=== PATIENT | female | born 1975 | race Caucasian/White ===

== ENCOUNTER 2019-11-10 20:55 | Emergency (ER) | payer OTHER ==
[~2019-11-10] VITALS: Ht 162.6 cm; Wt 60.2 kg
[2019-11-10 20:55] VITALS: BP 127/70
[~2019-11-10 20:55] MED LIST: DIPH25CA58 PO; DOMPERIDONE; PRENATAL ONE T1 EACH PO; SULF5DRO OD
--- NOTE | 2019-11-10 21:28 | PHYS DOC ---
Past History Past Medical History: Other Additional Past Medical Histor: ADHD Past Surgical History: No Surgical History Smoking: Non-smoker Alcohol Use: None Drug Use: None General Adult EDM: Chief Complaint: INSECT BITE HPI: HPI: "...We moved into the area again .. about 3 weeks ago.. we were checking out... With several health rebound.. And I got multiple insect bites... So did my kids... They got better... I did not Patient is a 44 year old female who presents with multiple insect bites which appear to be chiggers-areas appear to be excoriated. Pt. now appears to be developing some cellulitis. Patient does not remember her last tetanus vaccinations. Recently moved to the area from [place]. Currently will be following at [facility] and or Dr. Colby's office. Patient has no central adenopathy. Does have some striation and surrounding inflammation and insect bites. No history immunosuppression. Recently moved back into [facility] from [place]. Review of Systems: Review of Systems: Constitutional: Denies fever or chills Eyes: Denies change in visual acuity HENT: Denies nasal congestion or sore throat Respiratory: Denies cough or shortness of breath Cardiovascular: Denies chest pain or edema GI: Denies abdominal pain, nausea, vomiting, bloody stools or diarrhea : Denies dysuria Musculoskeletal: Denies back pain or joint pain Integument: Complains of insect bites and cellulitis Neurologic: Denies headache, focal weakness or sensory changes Endocrine: Denies polyuria or polydipsia Lymphatic: Denies swollen glands Psychiatric: Denies depression or anxiety Heart Score: Risk Factors: Risk Factors: DM, Current or recent (<one month) smoker, HTN, HLP, family history of CAD, obesity. Risk Scores: Score 0 - 3: 2.5% MACE over next 6 weeks - Discharge Home Score 4 - 6: 20.3% MACE over next 6 weeks - Admit for Clinical Observation Score 7 - 10: 72.7% MACE over next 6 weeks - Early Invasive Strategies Family History: Family History: All her children have insect bites but they recovered Current Medications: Current Meds: See nursing for home meds Allergies: Allergies: Allergies Coded Allergies Type Severity Reaction Last Updated Verified No Known Drug Allergies 11/10/19 No Physical Exam: PE: Constitutional: Well developed, well nourished, moderate acute distress, non- toxic appearance. [] HENT: Normocephalic, atraumatic, bilateral external ears normal, oropharynx moist, no oral exudates, nose normal. [] Eyes: PERRLA, EOMI, conjunctiva normal, no discharge. [] Neck: Normal range of motion, no tenderness, supple, no stridor. [] Cardiovascular:Heart rate regular rhythm, no murmur [] Lungs & Thorax: Bilateral breath sounds clear to auscultation [] Abdomen: Bowel sounds normal, soft, no tenderness, no masses, no pulsatile masses. [] Skin: Warm, dry, multiple bites which appear to be chigger bites in distribution and location. Does have localized inflammation and cellulitis from excoriation Back: No tenderness, no CVA tenderness. [] Extremities: No tenderness, no cyanosis, no clubbing, ROM intact, no edema. [] Neurologic: Alert and oriented X 3, normal motor function, normal sensory function, no focal deficits noted. [] Psychologic: Affect anxious, judgement normal, mood normal. [] Current Patient Data: Vital Signs: Vital Signs Date Time Temp Pulse Resp B/P (MAP) Pulse Ox O2 Delivery O2 Flow Rate FiO2 11/10/19 20:55 98.2 58 16 127/70 (89) 99 Room Air EKG: EKG: [] Radiology/Procedures: Radiology/Procedures: [] Course & Med Decision Making: Course & Med Decision Making Pertinent Labs and Imaging studies reviewed. (See chart for details) Patient use salt water compresses or Epson salt water compresses 4 times a day. Afterwards rub areas with Polysporin 4 times a day. Patient take Bactrim DS twice a day for the next 10 days. Patient warned can make her sun sensitive. Patient take [id number] Tylenol and ibuprofen for discomfort. For marked discomfort from itching may take Benadryl 25 to 50 mg up to 4 times a day. Patient avoid further scratching of the insect bites. Patient follow-up primary care. Patient return if any concerns. Impression: 1. Chigger bites 2. Localized cellulitis and excoriations [] Dragon Disclaimer: Dragon Disclaimer: This electronic medical record was generated, in whole or in part, using a voice recognition dictation system. Departure Departure: Disposition: 01 HOME/RESIDENCE PRIOR TO ADM Condition: STABLE Referrals: MOHIT COLBY MD (PCP) Scripts Sulfamethoxazole/Trimethoprim (BACTRIM DS TABLET) 1 Each Tablet 1 TAB PO BID for cellulitis for 10 Days, #20 TAB 0 Refills Prov: GARY RICHARDS MD 11/10/19 Justification of Admission: Justification of Admission: Justification of Admission Dx: N/A Dragon Disclaimer This chart was dictated in whole or in part using Voice Recognition software in a busy, high-work load, and often noisy Emergency Department environment. It may contain unintended and wholly unrecognized errors or omissions. Dragon Disclaimer This chart was dictated in whole or in part using Voice Recognition software in a busy, high-work load, and often noisy Emergency Department environment. It may contain unintended and wholly unrecognized errors or omissions. GARY RICHARDS MD Nov 10, 2019 21:28
[2019-11-10] MEDS ORDERED: SULF1TAB24 PO (21:33)
[2019-11-10] MEDS ORDERED: SMZ/TMP 800/160MG TABLET. PO ONE (22:00)
[2019-11-10] MEDS ORDERED: DIPH,PERTUSS(ACELL),TET VAC/PF 0.5 ML SYRINGE. VAX IM ONE (22:30)
== END 2019-11-10 22:44 | disposition home or self-care (01) ==
LOC: ER 20:55
DX: S80.861A Insect bite (nonvenomous), right lower leg, initial encounter (principal); S70.262A Insect bite (nonvenomous), left hip, initial encounter; S00.462A Insect bite (nonvenomous) of left ear, initial encounter; S30.860A Insect bite (nonvenomous) of lower back and pelvis, initial encounter; L03.90 Cellulitis, unspecified; W57.XXXA Bitten or stung by nonvenomous insect and other nonvenomous arthropods, initial encounter; Y93.89 Activity, other specified; Y92.89 Other specified places as the place of occurrence of the external cause; Y99.8 Other external cause status
CPT/HCPCS: 90471; 90715; 99283-25

== ENCOUNTER 2019-11-27 10:36 | Emergency (ER) | payer OTHER ==
[~2019-11-27] VITALS: Ht 162.6 cm; Wt 61.2 kg
[~2019-11-27 10:36] MED LIST changes: +SULF1TAB24 PO
[2019-11-27 10:50] VITALS: BP 106/60
--- NOTE | 2019-11-27 11:27 | PHYS DOC ---
Past History Past Medical History: Other Additional Past Medical Histor: ADHD Past Surgical History: , Other Additional Past Surgical Histo: CERVICLE SPINE, R-WRIST, L-KNEE, BILAT CARPAL TUNNEL Smoking: Non-smoker Alcohol Use: None Drug Use: None Adult General Chief Complaint Chief Complaint: SKIN PROBLEM HPI HPI Patient is a 44-year-old female who presents for skin problems. Reported onset of the skin problems approximately 2 weeks ago for which she visited our ER for evaluation and was subsequently prescribed Bactrim. Patient had allergic reaction to said medication and this was discontinued. Patient thought she was resolving; however, it did not fully resolve and worsened spreading to various portions of her body mostly on her extremities. Patient was seen by her PCP 3 days ago and given and antibiotic injection (I assume Rocephin) and subsequently prescribed Keflex. She has been taking this as scheduled without compliance issues. She is concerned that her skin issues are not resolving and here for ev aluation. She denies any fever, syncope, chest pain, shortness of breath, abdominal pain, URI-like symptoms and/or COVID symptoms. She has no history of MRSA infection, no recent travel to concerning places. She reports relocating approximately 1 month ago from [place], admits being outdoors a lot wearing shorts and short sleeves, reports exploring in [place] with her [place] but denies any known tick exposure. She does admit to several insect bites Review of Systems Review of Systems Fourteen body systems of review of systems have been reviewed. See HPI for pertinent positives and negative responses, other francis all other systems are negative, non-pertinent or non-contributory Allergies Allergies Allergies Coded Allergies Type Severity Reaction Last Updated Verified sulfamethoxazole Allergy Unknown 11/27/19 Yes trimethoprim Allergy Unknown 11/27/19 Yes Physical Exam Physical Exam Constitutional: Well developed, well nourished, no acute distress, non-toxic appearance. HENT: Normocephalic, atraumatic, bilateral external ears normal, oropharynx moist, no oral exudates, nose normal. Eyes: PERRLA, EOMI, conjunctiva normal, no discharge. Neck: Normal range of motion, no tenderness, supple, no stridor. Cardiovascular: Heart rate regular, sinus rhythm, no murmurs rubs or gallops Lungs & Thorax: Bilateral breath sounds clear to auscultation Abdomen: Bowel sounds normal, soft, no tenderness, no masses, no pulsatile masses. Nonsurgical abdomen, no peritoneal signs Skin: Warm, dry, no erythema, no rash. Numerous sites of excoriation and skin breakdown on all extremities with largest lesion on posterior left scalp Bila, this was dressed by PCP 3 days ago. Appears well appearing, epidermal with mild dermal breakdown and moist without any palpable exudate or crepitus, minimal erythema surrounding borders which are not raised all consistent with simple staph infection of skin Back: No tenderness, no CVA tenderness. Extremities: No tenderness, no cyanosis, no clubbing, ROM intact, no edema. Neurologic: Alert and oriented X 3, grossly normal motor & sensory function, no focal deficits noted. Psychologic: Affect normal, judgement normal, anxious mood Current Patient Data Vital Signs Vital Signs Date Time Temp Pulse Resp B/P (MAP) Pulse Ox O2 Delivery O2 Flow Rate FiO2 11/27/19 10:50 98.7 48 20 106/60 (75) 100 Room Air EKG EKG [] Radiology/Procedures Radiology/Procedures [] Course & Med Decision Making Course & Med Decision Making Well-appearing ambulatory patient seen on arrival ABCs non-concerning Comprehensive history and physical exam performed At present, no emergent and/or surgical findings. I discussed she likely has skin infection without risk factors for MRSA, no known tick bite etc. She is on appropriate therapy with Keflex I reassured patient to continue previously prescribed p.o. medications. I did recommend close PCP follow-up in outpatient setting near completion of said antibiotics. If no resolution occurs, would consider escalating antibiotic therapy to covering MRSA and/or other tickborne or insects Strict return precautions were discussed with good understanding by patient, all questions and concerns addressed prior to ER departure in stable condition Dragon Disclaimer Dragon Disclaimer This electronic medical record was generated, in whole or in part, using a voice recognition dictation system. Departure Departure: Impression: Primary Impression: Skin infection, bacterial Disposition: HOME/RESIDENCE PRIOR TO ADM Condition: STABLE Referrals: MOHIT LAGOS MD (PCP) Patient Instructions: Skin Infections Additional Instructions: As discussed prior to ER departure, please call your PCP first thing tomorrow morning to schedule outpatient follow-up in upcoming 1 to 10 days time for reevaluation Please continue to take your Keflex antibiotic as scheduled to completion I would recommend discontinuing hydrocortisone/Neosporin use. Please apply Vaseline and/or Aquaphor to lesions for barrier and hydration Please continue to take NSAIDs for pain and anti-inflammatory use in addition to heating pad for your enlarged lymph node It was a pleasure to take care of you and I wish you a speedy recovery Justification of Admission: Justification of Admission: Justification of Admission Dx: N/A MARY FLORES DO Nov 27, 2019 11:27
== END 2019-11-27 11:38 | disposition home or self-care (01) ==
LOC: ER 10:36
DX: L08.89 Other specified local infections of the skin and subcutaneous tissue (principal); L98.8 Other specified disorders of the skin and subcutaneous tissue; B96.89 Other specified bacterial agents as the cause of diseases classified elsewhere; Z88.1 Allergy status to other antibiotic agents
CPT/HCPCS: 99282

== ENCOUNTER 2021-01-17 20:00 | Emergency (ER) | payer OTHER ==
[~2021-01-17] VITALS: Ht 162.6 cm; Wt 71.2 kg
[2021-01-17] MEDS ORDERED: IV NORMAL SALINE 1,000ML 1,000 ML IV ONE (20:30)
--- NOTE | 2021-01-17 21:01 | PHYS DOC ---
Past History Past Medical History: Other Additional Past Medical Histor: ADHD Past Surgical History: , Other Additional Past Surgical Histo: CERVICLE SPINE, R-WRIST, L-KNEE, BILAT CARPAL TUNNEL Smoking: Non-smoker Alcohol Use: None Drug Use: None General Adult EDM: Chief Complaint: SORE THROAT HPI: HPI: 45-year-old female presents with fatigue, body aches, sore throat. She has had the symptoms for couple days. Her sore throat is been getting worse. Her made her come in for evaluation. The patient has been vaccinated against COVID-19. She has not been vaccinated for influenza. She does not believe she has had a fever at home. She has no other specific complaints at this time. Review of Systems: Review of Systems: Constitutional: Body aches, fatigue. Eyes: Denies change in visual acuity HENT: sore throat Respiratory: Denies cough or shortness of breath Cardiovascular: Denies chest pain or edema GI: Denies abdominal pain, nausea, vomiting, bloody stools or diarrhea : Denies dysuria Musculoskeletal: Denies back pain or joint pain Integument: Denies rash Neurologic: Denies headache, focal weakness or sensory changes Endocrine: Denies polyuria or polydipsia Lymphatic: Denies swollen glands Psychiatric: Denies depression or anxiety Current Medications: Current Meds: Current Medications Medications (Trade) Dose Ordered Sig/Radha Start Time Stop Time Status Last Admin Dose Admin Sodium Chloride 1,000 ml @ 1,000 mls/hr 1X ONCE 01/17/21 20:30 01/17/21 21:29 Allergies: Allergies: Allergies Coded Allergies Type Severity Reaction Last Updated Verified sulfamethoxazole Allergy Unknown 11/27/19 Yes trimethoprim Allergy Unknown 11/27/19 Yes Physical Exam: PE: Constitutional: Well developed, well nourished, no acute distress, non-toxic appearance. [] HENT: Normocephalic, atraumatic, bilateral external ears normal, oropharynx erythematous, no oral exudates, nose normal. [] Eyes: PERRLA, EOMI, conjunctiva normal, no discharge. [] Neck: Normal range of motion, no tenderness, supple, no stridor. [] Cardiovascular: Heart rate regular rhythm, no murmur [] Lungs & Thorax: Bilateral breath sounds clear to auscultation [] Abdomen: Bowel sounds normal, soft, no tenderness, no masses, no pulsatile masses. [] Skin: Warm, dry, no erythema, no rash. [] Back: No tenderness, no CVA tenderness. [] Extremities: No tenderness, no cyanosis, no clubbing, ROM intact, no edema. [] Neurologic: Alert and oriented X 3, normal motor function, normal sensory function, no focal deficits noted. [] Psychologic: Affect normal, judgement normal, mood normal. [] EKG: EKG: [] Radiology/Procedures: Radiology/Procedures: [] Heart Score: C/O Chest Pain: N/A Risk Factors: Risk Factors: DM, Current or recent (<one month) smoker, HTN, HLP, family history of CAD, obesity. Risk Scores: Score 0 - 3: 2.5% MACE over next 6 weeks - Discharge Home Score 4 - 6: 20.3% MACE over next 6 weeks - Admit for Clinical Observation Score 7 - 10: 72.7% MACE over next 6 weeks - Early Invasive Strategies Course & Med Decision Making: Course & Med Decision Making Pertinent Labs and Imaging studies reviewed. (See chart for details) The patient's labs are unremarkable. Her rapid strep is negative. Her influenza is negative. This could be COVID-19 and the test is pending. We will not get the back for 24 to 48 hours. I given the patient 10 mg of Decadron IV for her throat pain. I have advised supportive care and isolation at home. She is stable for discharge at this time. [] Dragon Disclaimer: Dragon Disclaimer: This electronic medical record was generated, in whole or in part, using a voice recognition dictation system. Departure Departure: Impression: Primary Impression: Pharyngitis Qualified Codes: J02.9 - Acute pharyngitis, unspecified Additional Impression: Viral syndrome Disposition: HOME / SELF CARE / HOMELESS Condition: STABLE Referrals: MOHIT LAGOS MD (PCP) Patient Instructions: Viral Syndrome LORENA FINE DO Jan 17, 2021 21:01
--- NOTE | 2021-01-17 21:21 | RAD ---
Exam: Chest one view INDICATION: Cough TECHNIQUE: Frontal view of the chest Comparisons: None FINDINGS: The cardiomediastinal silhouette and pulmonary vessels are within normal limits. The lung and pleural spaces are clear. IMPRESSION: No acute cardiopulmonary process. Electronically signed by: Erwin Mahan MD (01/17/2021 9:19 PM) CHRISSIE
[2021-01-17] MEDS ORDERED: DEXAMETHASONE SOD PHOS 10 MG/ML VIAL. IVP ONE (22:00)
[2021-01-17 22:07] LABS: BASO % 1 % (0-3); EOS # 0.1 x10^3/uL (0.0-0.7); EOS % 2 % (0-3); HEMATOCRIT 39.5 % (36.0-47.0); HEMOGLOBIN 13.5 g/dL (12.0-15.5); LYMPH # 1.8 x10^3/uL (1.0-4.8); LYMPH % 34 % (24-48); MEAN CORPUSCULAR HEMOGLOBIN 31 pg (25-35); MEAN CORPUSCULAR HGB CONC 34 g/dL (31-37); MEAN CORPUSCULAR VOLUME 91 fL (79-100); MONO # 0.7 x10^3/uL (0.0-1.1); MONO % 13 % (0-9); NEUT # 2.6 x10^3uL (1.8-7.7); NEUT % 50 % (31-73); PLATELET COUNT 195 x10^3/uL (140-400); RED BLOOD COUNT 4.32 x10^6/uL (3.50-5.40); RED CELL DISTRIBUTION WIDTH 13.4 % (11.5-14.5); WHITE BLOOD COUNT 5.2 x10^3/uL (4.0-11.0)
[2021-01-17 22:08] LABS: CALCIUM 8.9 mg/dL (8.5-10.1); CREATININE 0.7 mg/dL (0.6-1.0); GFR 91.3; POTASSIUM 3.7 mmol/L (3.5-5.1)
[2021-01-17 22:13] LABS: ALBUMIN 3.8 g/dL (3.4-5.0); ALBUMIN/GLOBULIN RATIO 1.1 (1.0-1.7); TOTAL BILIRUBIN 0.6 mg/dL (0.2-1.0); TOTAL PROTEIN 7.4 g/dL (6.4-8.2)
[2021-01-17 22:36] LABS: INFLUENZA A PATIENT NEGATIVE (NEGATIVE); INFLUENZA B PATIENT NEGATIVE (NEGATIVE)
[2021-01-17 23:00] VITALS: BP 108/61
== END 2021-01-17 23:12 | disposition home or self-care (01) ==
LOC: ER 20:00
DX: J02.9 Acute pharyngitis, unspecified (principal); B34.9 Viral infection, unspecified; Z88.2 Allergy status to sulfonamides; Z20.822 Contact with and (suspected) exposure to COVID-19
CPT/HCPCS: 36415; 71045; 80053; 85025; 87070; 87804; 87880; 96361; 96374; 99284; J1100; J7030; U0003

== ENCOUNTER 2021-04-06 07:30 | Emergency (ER) | payer OTHER ==
[~2021-04-06] VITALS: Ht 162.6 cm; Wt 71.2 kg
[2021-04-06 07:47] VITALS: BP 112/55
--- NOTE | 2021-04-06 07:55 | PHYS DOC ---
Past History Past Medical History: Other Additional Past Medical Histor: ADHD, bradycardia Past Surgical History: , Other Additional Past Surgical Histo: CERVICLE SPINE, R-WRIST, L-KNEE, BILAT CARPAL TUNNEL Smoking: Non-smoker Alcohol Use: None Drug Use: None General Adult EDM: Chief Complaint: PAIN ON URINATION HPI: HPI: 46-year-old female presents with urinary frequency and dysuria. The patient started to have urinary frequency yesterday. Later in the day, she started to have more pain with urination. She did not sleep very well last night. She now feels like she has a stabbing sensation with urination and afterwards. Denies fever or chills. She has not had urinary tract infections for several years. She has no other complaints at this time. Review of Systems: Review of Systems: Constitutional: Denies fever or chills Eyes: Denies change in visual acuity HENT: Denies nasal congestion or sore throat Respiratory: Denies cough or shortness of breath Cardiovascular: Denies chest pain or edema GI: Denies abdominal pain, nausea, vomiting, bloody stools or diarrhea : Dysuria Musculoskeletal: Denies back pain or joint pain Integument: Denies rash Neurologic: Denies headache, focal weakness or sensory changes Endocrine: Denies polyuria or polydipsia Lymphatic: Denies swollen glands Psychiatric: Denies depression or anxiety Allergies: Allergies: Allergies Coded Allergies Type Severity Reaction Last Updated Verified docusate Allergy Severe throat closing 01/17/21 Yes sulfamethoxazole Allergy Intermediate 01/17/21 Yes trimethoprim Allergy Intermediate 01/17/21 Yes Physical Exam: PE: Constitutional: Well developed, well nourished, no acute distress, non-toxic appearance. [] HENT: Normocephalic, atraumatic, bilateral external ears normal, oropharynx moist, no oral exudates, nose normal. [] Eyes: PERRLA, EOMI, conjunctiva normal, no discharge. [] Neck: Normal range of motion, no tenderness, supple, no stridor. [] Cardiovascular: Heart rate regular rhythm, no murmur [] Lungs & Thorax: Bilateral breath sounds clear to auscultation [] Abdomen: Bowel sounds normal, soft, suprapubic tenderness, no masses, no pulsatile masses. [] Skin: Warm, dry, no erythema, no rash. [] Back: No tenderness, no CVA tenderness. [] Extremities: No tenderness, no cyanosis, no clubbing, ROM intact, no edema. [] Neurologic: Alert and oriented X 3, normal motor function, normal sensory function, no focal deficits noted. [] Psychologic: Affect normal, judgement normal, mood normal. [] Current Patient Data: Vital Signs: Vital Signs Date Time Temp Pulse Resp B/P (MAP) Pulse Ox O2 Delivery O2 Flow Rate FiO2 04/06/21 07:47 97.8 62 16 112/55 (74) 98 Room Air EKG: EKG: [] Radiology/Procedures: Radiology/Procedures: [] Heart Score: C/O Chest Pain: N/A Risk Factors: Risk Factors: DM, Current or recent (<one month) smoker, HTN, HLP, family history of CAD, obesity. Risk Scores: Score 0 - 3: 2.5% MACE over next 6 weeks - Discharge Home Score 4 - 6: 20.3% MACE over next 6 weeks - Admit for Clinical Observation Score 7 - 10: 72.7% MACE over next 6 weeks - Early Invasive Strategies Course & Med Decision Making: Course & Med Decision Making Pertinent Labs and Imaging studies reviewed. (See chart for details) The patient's urinalysis is significant for UTI. I will treat her with Macrobid for 5 days. She is stable for discharge at this time. [] Iris Disclaimer: Iris Disclaimer: This electronic medical record was generated, in whole or in part, using a voice recognition dictation system. Departure Departure: Impression: Primary Impression: UTI (urinary tract infection) Disposition: HOME / SELF CARE / HOMELESS Condition: STABLE Referrals: JUNAID MARK DO (PCP) Patient Instructions: Urinary Tract Infection, [id number] Scripts Nitrofurantoin Monohyd/M-Cryst (MACROBID 100 MG CAPSULE) 100 Mg Capsule 1 CAP PO BID for UTI for 5 Days, #10 CAP 0 Refills Prov: LORENA FINE DO 04/06/21 LORENA FINE DO Apr 06, 2021 07:55
[2021-04-06 08:30] LABS: BACTERIA,URINE MANY /HPF (0-FEW); BILIRUBIN,URINE NEG (NEG); CLARITY,URINE CLOUDY; COLOR,URINE YELLOW; GLUCOSE,URINE NEG (NEG); NITRITE,URINE POS (NEG); RBC,URINE >40 /HPF (0-2); SQUAMOUS EPITHELIAL CELL,UR MOD /LPF; UROBILINOGEN,URINE 0.2 mg/dL (0.2 mg/dL); WBC,URINE >40 /HPF (0-4)
[2021-04-06] MEDS ORDERED: NITR100C62 PO (08:31)
== END 2021-04-06 08:37 | disposition home or self-care (01) ==
LOC: ER 07:30
DX: N39.0 Urinary tract infection, site not specified (principal); Z98.890 Other specified postprocedural states; Z88.1 Allergy status to other antibiotic agents; Z88.2 Allergy status to sulfonamides; Z88.8 Allergy status to other drugs, medicaments and biological substances
CPT/HCPCS: 81001; 87086; 87186; 99283